=== PATIENT | female | born 1985 | race Asian ===

== ENCOUNTER 2022-09-11 10:17 | Emergency (ER) | payer BC ==
[~2022-09-11] VITALS: Ht 160 cm; Wt 52.2 kg
[2022-09-11 10:17] VITALS: BP_SYST 111
[2022-09-11] MEDS ORDERED: DIPH25CA83 PO (12:06)
[2022-09-11] MEDS ORDERED: IBUP-1969 PO (12:06)
[2022-09-11 12:12] VITALS: BP_SYST 112
== END 2022-09-11 12:13 | disposition home or self-care (01) ==
LOC: SED 10:17
DX: J40 Bronchitis, not specified as acute or chronic (principal); R07.81 Pleurodynia; R05.9 Cough, unspecified; Z79.899 Other long term (current) drug therapy; Z20.822 Contact with and (suspected) exposure to COVID-19
CPT/HCPCS: 71045; 99284